=== PATIENT | male | born 1990 | race Caucasian/White ===

== ENCOUNTER 2017-08-01 14:39 | Emergency (ER) | payer OTHER ==
[2017-08-01 14:44] VITALS: BP 146/86; PULSE 73; RESP 16; TEMP 98.1; O2SAT 97
--- NOTE | 2017-08-01 15:09 | EDPHY ---
H & P Time Seen by Provider: 08/01/17 14:59 HPI/ROS: CHIEF COMPLAINT: Left neck pain HISTORY OF PRESENT ILLNESS: Patient was using a weed whacker at work when he had something strike him in the neck around noon. He feels a foreign body sensation in his left lateral neck approximately 1.5 cm lateral to the open wound in his skin where he felt like he got struck. REVIEW OF SYSTEMS: No trouble breathing or swallowing, no change in voice. PAST MEDICAL HISTORY: Negative, tetanus not up-to-date Social history: Work injury General Appearance: Alert and conversant, cooperative. Patient has 1 mm puncture wound in his left lateral neck. Trachea is midline. Voice is normal. No respiratory distress. No crepitus. On exam I can palpate what appears to be a movable solid object lateral to the puncture wound. EDM: Plan for x-ray, surgery consultation for possible foreign body in the neck. Low suspicion for vascular injury or airway problem. 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 Smoking Status: Former smoker Constitutional: Initial Vital Signs Temperature (C) 36.7 C 08/01/17 14:41 Heart Rate 73 08/01/17 14:41 Respiratory Rate 16 08/01/17 14:41 Blood Pressure 146/86 H 08/01/17 14:41 O2 Sat (%) 97 08/01/17 14:41 O2 Delivery Mode Room Air Allergies/Adverse Reactions: No Known Allergies Allergy (Unverified 08/01/17 14:44) Home Medications: Medication Instructions Recorded NK [No Known Home Meds] 08/01/17 MDM/Departure - MDM Imaging Results: Imaging Impressions Soft Tissue Neck X-Ray 08/01/17 15:07 Impression: Small radiopaque subcutaneous foreign body along the left mid neck. - Depart Disposition: Home, Routine, Self-Care Clinical Impression: Puncture wound of neck with foreign body Qualifiers: Encounter type: initial encounter Qualified Code(s): S11.94XA - Puncture wound with foreign body of unspecified part of neck, initial encounter Condition: Good Instructions: Puncture Wound (ED) Additional Instructions: Follow-up as per Dr. Hawthorne's instructions Referrals: Juan Alberto Hawthorne MD [Medical Doctor] - As per Instructions Vilma Gore MD [Medical Doctor] - As per Instructions
[2017-08-01] MEDS ORDERED: TDAP ADULT 0.5 ML INJ (BOOSTRIX) IM ONE (15:18)
--- NOTE | 2017-08-01 16:07 | GPN ---
[f rep st] PROCEDURE NOTE The patient is a 26-year-old white male who works for the [employer]. He was cleaning ca t tails with a metal blade on the end of his weed whacker. He hit a rock and immediately felt pain i n his left neck. He came to the emergency room. There was a small subcutaneous foreign body which i s easily palpable at approximately his left mid neck on the anterolateral aspect. An x-ray confirmed its presence. He is a nonsmoker. His tetanus is not up to date but that will be remedied. He consents to having the foreign body removed. The left neck is carefully prepped and draped. The skin was anesthetized with 1%. The foreign body is just under the skin. The skin was sharply incised with a 15 blade. Foreign body was easily ident ified and removed. The wound was closed with 2 vertical mattress sutures of #4-0 Prolene. Sterile dressing was applied after topical antibiotic was applied to the incision and the entrance si te. He will follow up with Dr. Ismael Jackson' office in about 10 days to 2 weeks. Antibiotics were not g iven at this point. /[id number]/MODL
== END 2017-08-01 16:18 | disposition home or self-care (01) ==
DX: S11.94XA Puncture wound with foreign body of unspecified part of neck, initial encounter (principal); W22.8XXA Striking against or struck by other objects, initial encounter; Y92.69 Other specified industrial and construction area as the place of occurrence of the external cause; Y99.0 Civilian activity done for income or pay; Y93.89 Activity, other specified; Z23 Encounter for immunization; Z87.891 Personal history of nicotine dependence